=== PATIENT | female | born 1980 | race Caucasian/White ===

== ENCOUNTER 2021-07-11 19:08 | Emergency (ER) | payer OTHER ==
[~2021-07-11] VITALS: Ht 160 cm; Wt 136.4 kg
[2021-07-11] MEDS ORDERED: ESCI20TA87 PO (21:33)
[2021-07-11] MEDS ORDERED: BUSP10TA23 PO (21:33)
[2021-07-11] MEDS ORDERED: TOPI25 PO (21:33)
[2021-07-11] MEDS ORDERED: LEVO125 PO (21:33)
[2021-07-11] MEDS ORDERED: METF-1211 PO (21:33)
[2021-07-11] MEDS ORDERED: ACET-3385 PO (21:35)
[2021-07-11] MEDS ORDERED: PRAM56OI RC (21:35)
[2021-07-11 22:09] VITALS: BP 141/69
[2021-07-11] MEDS ORDERED: IBUPROFEN 800 MG TABLET PO ONE (22:15)
== END 2021-07-11 23:00 | disposition home or self-care (01) ==
LOC: EMS 19:11
DX: S09.90XA Unspecified injury of head, initial encounter (principal); Y04.0XXA Assault by unarmed brawl or fight, initial encounter; Y93.89 Activity, other specified; Y92.89 Other specified places as the place of occurrence of the external cause; Y99.8 Other external cause status
CPT/HCPCS: 70450; 99284

== ENCOUNTER 2022-03-25 08:23 | Day surgery (SDC) | payer OTHER ==
[2022-03-24 13:05] LABS: COVID AG,FIA SOURCE NASOPHARYNGEAL
[~2022-03-25] VITALS: Ht 160 cm; Wt 136.4 kg
[~2022-03-25 08:23] MED LIST: ACET-3385 PO; BUSP10TA23 PO; ESCI20TA87 PO; LEVO125 PO; METF-1211 PO; PRAM56OI RC; SODIUM CHLORIDE 0.9% 1,000 ML IV ONE; SODIUM CHLORIDE 0.9% 1,000 ML ONE
[2022-03-25] MEDS ORDERED: LIDOCAINE/PF 2% 5 ML VIAL IM ONE (08:24)
[2022-03-25] MEDS ORDERED: PROPOFOL 1% 20 ML VIAL IVP ONE (08:24)
[2022-03-25 09:51] LABS: GLUCOMETER DEV NAME(LOC) SDS.; GLUCOSE,POINT OF CARE 100 MG/DL (70-110)
== END 2022-03-25 12:10 | disposition home or self-care (01) ==
LOC: SURGERY 08:23
PROVIDERS: ATTEND Specialist
DX: K62.5 Hemorrhage of anus and rectum (principal); K62.89 Other specified diseases of anus and rectum; K64.4 Residual hemorrhoidal skin tags; E11.9 Type 2 diabetes mellitus without complications; Z79.899 Other long term (current) drug therapy; Z98.890 Other specified postprocedural states
CPT/HCPCS: 87426; 45378; 82962; C9803; J2704; J3490; J7030